=== PATIENT | male | born 1995 | race Two or more races ===

== ENCOUNTER 2023-03-24 10:30 | Day surgery (SDC) | payer OTHER ==
[2023-03-24] MEDS ORDERED: CEFAZOLIN SODIUM 1,000 MG VIAL ONE (11:18)
[2023-03-24] MEDS ORDERED: DEXAMETHASONE SODIUM PHOSPHATE 4 MG/ML VIAL ONE (12:53)
[2023-03-24] MEDS ORDERED: EPINEPHRINE HCL/PF 1 MG/ML AMPUL ONE (12:53)
[2023-03-24] MEDS ORDERED: POVIDONE-IODINE 118 ML BOTT TOP ONE ×2 (12:55→14:30)
[2023-03-24] MEDS ORDERED: DEXAMETHASONE SODIUM PHOSPHATE 4 MG/ML VIAL IV ONE ×2 (14:30→17:15)
[2023-03-24] MEDS ORDERED: EPINEPHRINE HCL/PF 1 MG/ML AMPUL IJ ONE (14:30)
[2023-03-24] MEDS ORDERED: CEFAZOLIN SODIUM 1,000 MG VIAL IV ONE (14:30)
[2023-03-24] MEDS ORDERED: CEPHALEXIN500 M1 PO (17:03)
[2023-03-24] MEDS ORDERED: CIPROFLOXACIN2.5 ML OTIC (17:03)
== END 2023-03-24 20:10 | disposition home or self-care (01) ==
LOC: CIR.AMB 10:30
PROVIDERS: ATTEND Otolaryngology Otology & Neurotology
DX: H74.21 Discontinuity and dislocation of right ear ossicles (principal); H71.21 Cholesteatoma of mastoid, right ear; H90.A11 Conductive hearing loss, unilateral, right ear with restricted hearing on the contralateral side; H72.11 Attic perforation of tympanic membrane, right ear; Z20.822 Contact with and (suspected) exposure to COVID-19